=== PATIENT | male | born 1970 | race Caucasian/White ===

== ENCOUNTER 2016-10-23 20:27 | Inpatient (IN) | payer MEDICAID, OTHER, SELFPAY ==
[~2016-10-23] VITALS: Ht 177.8 cm; Wt 85.5 kg
[2016-10-23] MEDS ORDERED: ALBUTEROL/IPRATROPIUM 2.5MG/0.5MG, 3 ML ONE (20:37)
[2016-10-23] MEDS ORDERED: CEFTRIAXONE PMX 1GM/50ML 50 ML ONE (20:58)
[2016-10-23] MEDS ORDERED: methylPREDNISolone SOD SUCC 125 MG/2 ML ONE (20:58)
[2016-10-23] MEDS ORDERED: KETOROLAC 30 MG/1 ML ONE (20:58)
[2016-10-23] MEDS ORDERED: methylPREDNISolone SOD SUCC 125 MG/2 ML IVP ONE (21:00)
[2016-10-23] MEDS ORDERED: SODIUM CHLORIDE FLUSH 10ML SYR IVF ONE (21:00)
[2016-10-23] MEDS ORDERED: SODIUM CHLORIDE 0.9% 1,000ML IVBOLUS ONE ×2 (21:00→22:00)
[2016-10-23] MEDS ORDERED: AZITHROMYCIN 500 MG in SODIUM CHLORIDE 0.9% 250 ML IV ONE (21:00)
[2016-10-23] MEDS ORDERED: KETOROLAC 30 MG/1 ML IVPush ONE (21:00)
[2016-10-23] MEDS ORDERED: CEFTRIAXONE 1,000 MG in SODIUM CHLORIDE 0.9% 50 ML IV ONE (21:00)
[2016-10-23] MEDS ORDERED: ALBUTEROL/IPRATROPIUM 2.5MG/0.5MG, 3 ML NPPB ONE (21:00)
[2016-10-23 21:25] LABS: BLOOD UREA NITROGEN 13 mg/dL (7-18)
[2016-10-23 21:31] LABS: IS PT STATUS REG ER OR PRE ER? YES
[2016-10-23] MEDS ORDERED: FLUT1BLS INH (21:50)
[2016-10-23] MEDS ORDERED: GABA300C10 PO (21:50)
[2016-10-23] MEDS ORDERED: IPRA12.9 INH (21:50)
[2016-10-23] MEDS ORDERED: LURA40TA PO (21:50)
[2016-10-23] MEDS ORDERED: ALBU18HF INH (21:50)
[2016-10-23] MEDS ORDERED: ATOR10TA9 PO (21:50)
[2016-10-23] MEDS ORDERED: ALBUTEROL 0.5%, 20ML NPPBCONT ONE (22:00)
[2016-10-23 23:50] VITALS: BP 94/66
[2016-10-24] MEDS ORDERED: IPRATROPIUM 0.5 MG/2.5 ML INHA HHN PRN
[2016-10-24] MEDS ORDERED: ALBUTEROL SULFATE 2.5 MG/3 ML HHN SCH
[2016-10-24] MEDS ORDERED: morphine SULFATE 10 MG/ML, 1ML IVPush PRN
[2016-10-24] MEDS: SODIUM CHLORIDE 0.9% 1,000 ML IV SCH ×4 (00:12→21:08)
[2016-10-24] MEDS: ENOXAPARIN 40 MG/0.4 ML SQ SCH (00:12)
[2016-10-24] MEDS ORDERED: ALBUTEROL/IPRATROPIUM 2.5MG/0.5MG, 3 ML ONE (01:14)
[2016-10-24] MEDS ORDERED: ALBUTEROL/IPRATROPIUM 2.5MG/0.5MG, 3 ML NPPB PRN (01:30)
[2016-10-24 01:55] VITALS: BP 114/61
[2016-10-24] MEDS: methylPREDNISolone SOD SUCC 125 MG/2 ML IVPush SCH ×4 (03:02→21:08)
[2016-10-24 05:05] LABS: BLOOD UREA NITROGEN 17 mg/dL (7-18)
[2016-10-24 06:40] VITALS: BP 117/79
[2016-10-24] MEDS: ALBUTEROL/IPRATROPIUM 2.5MG/0.5MG, 3 ML NPPB SCH ×5 (07:05→22:40)
[2016-10-24] MEDS: LURASIDONE 20 MG TABLET HOMEMEDPO SCH (09:00)
[2016-10-24] MEDS ORDERED: CEFTRIAXONE 1,000 MG in SODIUM CHLORIDE 0.9% 50 ML IV SCH (09:00)
[2016-10-24] MEDS: FLUTICASONE/VILANTEROL 200-25MCG/INH INH SCH (09:47)
[2016-10-24] MEDS: GABAPENTIN 300 MG CAPSULE PO SCH ×3 (09:47→21:08)
[2016-10-24] MEDS ORDERED: NICOTINE 14MG/24 HR PATCH.TD24 TD ONE (11:30)
[2016-10-24 12:30] VITALS: BP 113/75
[2016-10-24] MEDS: GUAIFENESIN 200 MG TABLET PO SCH ×3 (14:30→21:09)
[2016-10-24] MEDS ORDERED: GUAIFENESIN 200 MG TABLET PO SCH (16:00)
[2016-10-24 18:38] VITALS: BP 123/76
[2016-10-24] MEDS ORDERED: AZITHROMYCIN 250 MG TABLET PO SCH (21:00)
[2016-10-24] MEDS: AZITHROMYCIN 500 MG in SODIUM CHLORIDE 0.9% 250 ML IV SCH (21:08)
[2016-10-24] MEDS: ATORVASTATIN 10 MG TABLET PO SCH (21:09)
[2016-10-25] MEDS: ENOXAPARIN 40 MG/0.4 ML SQ SCH (00:04)
[2016-10-25 01:31] VITALS: BP 112/70
[2016-10-25 02:23] VITALS: BP 106/64
[2016-10-25] MEDS: SODIUM CHLORIDE 0.9% 1,000 ML IV SCH ×2 (04:12→12:39)
[2016-10-25] MEDS: GUAIFENESIN 200 MG TABLET PO SCH ×4 (05:12→20:52)
[2016-10-25] MEDS: ALBUTEROL/IPRATROPIUM 2.5MG/0.5MG, 3 ML NPPB SCH ×5 (06:52→22:32)
[2016-10-25 07:08] VITALS: BP 117/70
[2016-10-25] MEDS: FLUTICASONE/VILANTEROL 200-25MCG/INH INH SCH (08:24)
[2016-10-25] MEDS: CEFTRIAXONE PMX 1GM/50ML 50 ML IV SCH (08:24)
[2016-10-25] MEDS: GABAPENTIN 300 MG CAPSULE PO SCH ×3 (08:25→20:52)
[2016-10-25] MEDS: methylPREDNISolone SOD SUCC 125 MG/2 ML IVPush SCH ×2 (08:25→17:05)
[2016-10-25] MEDS: LURASIDONE 20 MG TABLET HOMEMEDPO SCH (08:32)
[2016-10-25] MEDS ORDERED: CEFTRIAXONE 1,000 MG in SODIUM CHLORIDE 0.9% 50 ML IV SCH (09:00)
[2016-10-25 13:28] VITALS: BP 115/70
[2016-10-25] MEDS: NICOTINE 14MG/24 HR PATCH.TD24 TD SCH (14:23)
[2016-10-25 19:43] VITALS: BP 142/89
[2016-10-25] MEDS: AZITHROMYCIN 500 MG in SODIUM CHLORIDE 0.9% 250 ML IV SCH (20:52)
[2016-10-25] MEDS: ATORVASTATIN 10 MG TABLET PO SCH (20:52)
[2016-10-25] MEDS: methylPREDNISolone SOD SUCC 40 MG/ML IVPush SCH (21:04)
[2016-10-26 01:49] VITALS: BP 115/73
[2016-10-26] MEDS: ALBUTEROL/IPRATROPIUM 2.5MG/0.5MG, 3 ML NPPB SCH ×6 (02:22→23:12)
[2016-10-26] MEDS: GUAIFENESIN 200 MG TABLET PO SCH ×4 (05:56→20:26)
[2016-10-26] MEDS: ENOXAPARIN 40 MG/0.4 ML SQ SCH (05:57)
[2016-10-26 07:37] VITALS: BP 131/86
[2016-10-26] MEDS: GABAPENTIN 300 MG CAPSULE PO SCH ×3 (08:11→20:25)
[2016-10-26] MEDS: methylPREDNISolone SOD SUCC 40 MG/ML IVPush SCH ×2 (08:11→15:24)
[2016-10-26] MEDS: CEFTRIAXONE PMX 1GM/50ML 50 ML IV SCH (08:11)
[2016-10-26] MEDS: FLUTICASONE/VILANTEROL 200-25MCG/INH INH SCH (08:36)
[2016-10-26] MEDS: LURASIDONE 20 MG TABLET HOMEMEDPO SCH (09:00)
[2016-10-26] MEDS: NICOTINE 14MG/24 HR PATCH.TD24 TD SCH (13:30)
[2016-10-26 15:37] VITALS: BP 126/73
[2016-10-26 19:13] VITALS: BP 130/78
[2016-10-26] MEDS: AZITHROMYCIN 500 MG in SODIUM CHLORIDE 0.9% 250 ML IV SCH (20:24)
[2016-10-26] MEDS: ATORVASTATIN 10 MG TABLET PO SCH (20:25)
[2016-10-27 02:17] VITALS: BP 125/78
[2016-10-27] MEDS: ALBUTEROL/IPRATROPIUM 2.5MG/0.5MG, 3 ML NPPB SCH ×6 (03:20→22:03)
[2016-10-27] MEDS: ENOXAPARIN 40 MG/0.4 ML SQ SCH (05:26)
[2016-10-27] MEDS: GUAIFENESIN 200 MG TABLET PO SCH ×4 (05:26→20:28)
[2016-10-27 07:11] VITALS: BP 146/93
[2016-10-27] MEDS: CEFTRIAXONE PMX 1GM/50ML 50 ML IV SCH (08:33)
[2016-10-27] MEDS: FLUTICASONE/VILANTEROL 200-25MCG/INH INH SCH (08:33)
[2016-10-27] MEDS: LURASIDONE 20 MG TABLET HOMEMEDPO SCH (08:33)
[2016-10-27] MEDS: GABAPENTIN 300 MG CAPSULE PO SCH ×3 (08:33→20:28)
[2016-10-27 14:51] VITALS: BP 119/78
[2016-10-27] MEDS: NICOTINE 14MG/24 HR PATCH.TD24 TD SCH (15:00)
[2016-10-27 18:47] VITALS: BP 46/93
[2016-10-27] MEDS: ATORVASTATIN 10 MG TABLET PO SCH (20:28)
[2016-10-27] MEDS: AZITHROMYCIN 500 MG in SODIUM CHLORIDE 0.9% 250 ML IV SCH (20:41)
[2016-10-28 01:24] VITALS: BP 126/80
[2016-10-28] MEDS: ALBUTEROL/IPRATROPIUM 2.5MG/0.5MG, 3 ML NPPB SCH ×3 (01:45→09:31)
[2016-10-28] MEDS ORDERED: MORPHINE SULFATE 4 MG/ML, 1ML ONE (05:19)
[2016-10-28] MEDS: ENOXAPARIN 40 MG/0.4 ML SQ SCH (05:27)
[2016-10-28] MEDS: GUAIFENESIN 200 MG TABLET PO SCH ×2 (05:27→12:02)
[2016-10-28] MEDS ORDERED: LEVO500T33 PO (06:59)
[2016-10-28] MEDS ORDERED: METH4TAB2 PO (06:59)
[2016-10-28] MEDS ORDERED: FLUT1BLS INH (06:59)
[2016-10-28 07:16] VITALS: BP 141/97
[2016-10-28] MEDS: LURASIDONE 20 MG TABLET HOMEMEDPO SCH (09:00)
[2016-10-28] MEDS: FLUTICASONE/VILANTEROL 200-25MCG/INH INH SCH (09:55)
[2016-10-28] MEDS: GABAPENTIN 300 MG CAPSULE PO SCH (09:55)
[2016-10-28] MEDS: CEFTRIAXONE PMX 1GM/50ML 50 ML IV SCH (09:56)
[2016-10-28 12:07] VITALS: BP 119/81
== END 2016-10-28 14:48 | disposition home or self-care (01) | DRG 871 ==
LOC: ED 21:42 → EDIP 21:55 → 5SO 23:45 → 4WST 10-25 02:00
PROVIDERS: ADMIT Internal Medicine
DX: A41.9 Sepsis, unspecified organism (principal); J96.01 Acute respiratory failure with hypoxia; J18.9 Pneumonia, unspecified organism; E44.1 Mild protein-calorie malnutrition; F33.9 Major depressive disorder, recurrent, unspecified; J44.0 Chronic obstructive pulmonary disease with (acute) lower respiratory infection; J44.1 Chronic obstructive pulmonary disease with (acute) exacerbation; G25.0 Essential tremor; I10 Essential (primary) hypertension; I27.2 Other secondary pulmonary hypertension; R65.20 Severe sepsis without septic shock; Z80.0 Family history of malignant neoplasm of digestive organs; Z82.5 Family history of asthma and other chronic lower respiratory diseases; Z87.891 Personal history of nicotine dependence; Z99.81 Dependence on supplemental oxygen; D64.9 Anemia, unspecified; Z68.27 Body mass index [BMI] 27.0-27.9, adult
CPT/HCPCS: 36415; 71010; 80048; 82040; 83605; 83880; 84484; 85025; 87040; 87070; 87205; 93005; 94640; 96365; 96366; 96367; 96375; J0456; J0696; J1650; J1885; J7620; J2270; J2920; J2930; J7030; J7050; J7512

== ENCOUNTER 2016-11-05 08:07 | Inpatient (IN) | payer MEDICAID ==
[~2016-11-05] VITALS: Ht 177.8 cm; Wt 87.2 kg
[~2016-11-05 08:07] MED LIST: ALBU18HF INH; ATOR10TA9 PO; FLUT1BLS INH; GABA300C10 PO; IPRA12.9 INH; LEVO500T33 PO; LURA40TA PO; METH4TAB2 PO
[2016-11-05] MEDS ORDERED: SODIUM CHLORIDE 0.9% 1,000 ML IV ONE (08:23)
[2016-11-05] MEDS ORDERED: SODIUM CHLORIDE 0.9% 1,000ML IVBOLUS ONE (08:30)
[2016-11-05] MEDS ORDERED: ALBUTEROL/IPRATROPIUM 2.5MG/0.5MG, 3 ML NPPB ONE (08:30)
[2016-11-05] MEDS ORDERED: ALBUTEROL/IPRATROPIUM 2.5MG/0.5MG, 3 ML ONE (08:34)
[2016-11-05 10:02] LABS: BLOOD UREA NITROGEN 13 mg/dL (7-18)
[2016-11-05] MEDS ORDERED: OMNIPAQUE 350 MG/ML, 100ML BOTTLE ONE (11:16)
[2016-11-05] MEDS ORDERED: hydrALAzine 20 MG/ML, 1ML IVPush PRN (12:30)
[2016-11-05] MEDS ORDERED: ONDANSETRON ODT 4 MG PO PRN (12:30)
[2016-11-05] MEDS ORDERED: POLYETHYLENE GLYCOL 17 GM PACKET PO PRN (12:30)
[2016-11-05] MEDS ORDERED: morphine SULFATE 10 MG/ML, 1ML IVPush PRN (12:30)
[2016-11-05] MEDS ORDERED: DOCUSATE 100 MG CAPSULE PO PRN (12:30)
[2016-11-05] MEDS ORDERED: ACETAMINOPHEN 325 MG TABLET PO PRN (12:30)
[2016-11-05] MEDS ORDERED: BISACODYL 10 MG SUPP PR PRN (12:30)
[2016-11-05] MEDS ORDERED: IPRATROPIUM 0.5 MG/2.5 ML INHA NPPB PRN (12:30)
[2016-11-05] MEDS ORDERED: ONDANSETRON 2MG/ML, 2ML IVPush PRN (12:30)
[2016-11-05 13:56] VITALS: BP 133/84
[2016-11-05] MEDS: ALBUTEROL SULFATE 2.5 MG/3 ML NPPB SCH ×2 (15:11→19:07)
[2016-11-05] MEDS: NICOTINE 14MG/24 HR PATCH.TD24 TD SCH (17:57)
[2016-11-05] MEDS: GUAIFENESIN ER 600 MG TABLET PO SCH ×2 (17:58→20:44)
[2016-11-05] MEDS: methylPREDNISolone SOD SUCC 125 MG/2 ML IVPush SCH (17:58)
[2016-11-05] MEDS: GABAPENTIN 300 MG CAPSULE PO SCH ×2 (17:59→20:43)
[2016-11-05] MEDS: ENOXAPARIN 40 MG/0.4 ML SQ SCH (17:59)
[2016-11-05] MEDS: FAMOTIDINE 20 MG TABLET PO SCH (20:43)
[2016-11-05] MEDS: ATORVASTATIN 10 MG TABLET PO SCH (20:44)
[2016-11-05 20:56] VITALS: BP 152/91
[2016-11-06 01:54] VITALS: BP 124/80
[2016-11-06] MEDS: methylPREDNISolone SOD SUCC 125 MG/2 ML IVPush SCH ×3 (01:58→18:40)
[2016-11-06 05:02] LABS: BLOOD UREA NITROGEN 14 mg/dL (7-18)
[2016-11-06 05:07] LABS: ASPARTATE AMINO TRANSFERASE 34 U/L (15-37)
[2016-11-06 07:11] VITALS: BP 132/82
[2016-11-06] MEDS: ALBUTEROL SULFATE 2.5 MG/3 ML NPPB SCH ×4 (07:29→19:48)
[2016-11-06] MEDS: GUAIFENESIN ER 600 MG TABLET PO SCH ×2 (09:20→21:02)
[2016-11-06] MEDS: FAMOTIDINE 20 MG TABLET PO SCH ×2 (09:20→21:02)
[2016-11-06] MEDS: GABAPENTIN 300 MG CAPSULE PO SCH ×3 (09:20→21:02)
[2016-11-06] MEDS: LURASIDONE 20 MG TABLET PO SCH (09:20)
[2016-11-06] MEDS: FLUTICASONE/VILANTEROL 200-25MCG/INH INH SCH (10:44)
[2016-11-06 13:24] VITALS: BP 118/73
[2016-11-06] MEDS: ENOXAPARIN 40 MG/0.4 ML SQ SCH (18:40)
[2016-11-06] MEDS: NICOTINE 14MG/24 HR PATCH.TD24 TD SCH (18:40)
[2016-11-06] MEDS: ATORVASTATIN 10 MG TABLET PO SCH (21:02)
[2016-11-06 21:22] VITALS: BP 136/88
[2016-11-07] MEDS: methylPREDNISolone SOD SUCC 125 MG/2 ML IVPush SCH ×3 (01:57→22:13)
[2016-11-07 02:27] VITALS: BP 112/68
[2016-11-07 04:44] LABS: BLOOD UREA NITROGEN 13 mg/dL (7-18)
[2016-11-07] MEDS: ALBUTEROL SULFATE 2.5 MG/3 ML NPPB SCH ×3 (06:42→15:06)
[2016-11-07] MEDS: LURASIDONE 20 MG TABLET PO SCH (07:38)
[2016-11-07] MEDS: GUAIFENESIN ER 600 MG TABLET PO SCH ×2 (07:38→22:14)
[2016-11-07] MEDS: FAMOTIDINE 20 MG TABLET PO SCH ×2 (07:38→22:13)
[2016-11-07] MEDS: FLUTICASONE/VILANTEROL 200-25MCG/INH INH SCH (07:38)
[2016-11-07] MEDS: GABAPENTIN 300 MG CAPSULE PO SCH ×3 (07:41→22:13)
[2016-11-07 08:04] VITALS: BP 102/63
[2016-11-07 15:31] VITALS: BP 109/65
[2016-11-07] MEDS: ENOXAPARIN 40 MG/0.4 ML SQ SCH (16:56)
[2016-11-07] MEDS: NICOTINE 14MG/24 HR PATCH.TD24 TD SCH (16:56)
[2016-11-07 19:22] VITALS: BP 123/76
[2016-11-07] MEDS: ATORVASTATIN 10 MG TABLET PO SCH (22:14)
[2016-11-08 01:28] VITALS: BP 111/72
[2016-11-08] MEDS: methylPREDNISolone SOD SUCC 125 MG/2 ML IVPush SCH (05:25)
[2016-11-08] MEDS: ALBUTEROL SULFATE 2.5 MG/3 ML NPPB SCH ×3 (06:45→14:55)
[2016-11-08 07:02] VITALS: BP 114/66
[2016-11-08] MEDS: GABAPENTIN 300 MG CAPSULE PO SCH ×2 (08:31→15:58)
[2016-11-08] MEDS: FLUTICASONE/VILANTEROL 200-25MCG/INH INH SCH (08:31)
[2016-11-08] MEDS: LURASIDONE 20 MG TABLET PO SCH (08:31)
[2016-11-08] MEDS: GUAIFENESIN ER 600 MG TABLET PO SCH (08:32)
[2016-11-08] MEDS: FAMOTIDINE 20 MG TABLET PO SCH (08:32)
[2016-11-08 13:42] VITALS: BP 121/70
[2016-11-08] MEDS: ENOXAPARIN 40 MG/0.4 ML SQ SCH (15:58)
[2016-11-08] MEDS: NICOTINE 14MG/24 HR PATCH.TD24 TD SCH (15:59)
[2016-11-08] MEDS ORDERED: PRED20TA PO (16:01)
[2016-11-08] MEDS ORDERED: GUAI600T22 PO (16:01)
== END 2016-11-08 18:07 | disposition home or self-care (01) | DRG 189 ==
LOC: ED 08:45 → EDIP 11:44 → 3NW 13:28
PROVIDERS: ADMIT Internal Medicine; ATTEND Internal Medicine
DX: J96.21 Acute and chronic respiratory failure with hypoxia (principal); J44.1 Chronic obstructive pulmonary disease with (acute) exacerbation; E87.2 Acidosis; J98.11 Atelectasis; Z99.11 Dependence on respirator [ventilator] status; E44.0 Moderate protein-calorie malnutrition; Z66 Do not resuscitate; L40.9 Psoriasis, unspecified; I10 Essential (primary) hypertension; F41.8 Other specified anxiety disorders; F31.9 Bipolar disorder, unspecified; F17.200 Nicotine dependence, unspecified, uncomplicated; E78.5 Hyperlipidemia, unspecified; Z59.0 Homelessness; Z88.0 Allergy status to penicillin; Z68.27 Body mass index [BMI] 27.0-27.9, adult; E78.00 Pure hypercholesterolemia, unspecified
CPT/HCPCS: 36415; 71020; 71275; 80048; 80053; 82040; 82310; 83605; 83735; 84132; 84145; 85025; 85379; 87040; 87070; 87205; 93005; 93306; 94640; 96360; 96361; J1650; J7613; J7620; Q9967; J2930; J7030

== ENCOUNTER 2017-05-17 22:30 | Inpatient (IN) | payer MEDICAID ==
[~2017-05-17] VITALS: Ht 177.8 cm; Wt 81.0 kg
[~2017-05-17 22:30] MED LIST changes: +GUAI600T31 PO; -LEVO500T33 PO; +LEVO500T47 PO; +PRED20TA PO
[2017-05-17] MEDS ORDERED: LOSA25TA5 PO (22:43)
[2017-05-17] MEDS ORDERED: PRED10TA PO (22:43)
[2017-05-17] MEDS ORDERED: BUSP15TA BC (22:43)
[2017-05-17] MEDS ORDERED: UMEC1DIS INH (22:43)
[2017-05-17] MEDS ORDERED: TAMS0.4C2 PO (22:43)
[2017-05-17] MEDS ORDERED: TIOT4MIS3 INH (22:43)
[2017-05-17] MEDS ORDERED: SODIUM CHLORIDE 0.9% 1,000ML IVBOLUS ONE (23:00)
[2017-05-17 23:31] LABS: BASOPHILS # (AUTO) 0.03 x10^3/uL (0-0.1); BASOPHILS % (AUTO) 0 % (0-1); EOSINOPHILS # (AUTO) 0.05 x10^3/uL (0-0.4); EOSINOPHILS % (AUTO) 0 % (1-7); LYMPHOCYTES # (AUTO) 2.05 x10^3/uL (1-3.4); LYMPHOCYTES % (AUTO) 20 % (22-44); MD NO; MEAN CORPUSCULAR HEMOGLOBIN 30.2 pg (27.5-34.5); MEAN CORPUSCULAR HGB CONC 33.2 g/dL (33.2-36.2); MEAN CORPUSCULAR VOLUME 90.9 fL (81-97); MEAN PLATELET VOLUME 7.7 fL (7.4-10.4); MONOCYTES # (AUTO) 1.31 x10^3/uL (0.2-0.8); MONOCYTES % (AUTO) 13 % (2-9); NEUTROPHILS # (AUTO) 6.96 x10^3/uL (1.8-6.8); NEUTROPHILS % (AUTO) 67 % (42-75); PLATELET COUNT 360 x10^3/uL (130-400); RED BLOOD COUNT 5.09 x10^6/uL (4.38-5.82); RED CELL DISTRIBUTION WIDTH 12.8 % (9.4-14.8)
[2017-05-17 23:38] LABS: RAPID INFLUENZA A Negative (Negative); RAPID INFLUENZA B Negative (Negative)
[2017-05-17 23:41] LABS: ALBUMIN 3.2 g/dL (3.4-5.0); ANION GAP 9 mmol/L (5-15); CALCIUM 9.1 mg/dL (8.5-10.1); CHLORIDE 104 mmol/L (98-107); CREATININE 0.95 mg/dL (0.7-1.3)
[2017-05-17 23:45] LABS: TROPONIN I < 0.015 ng/mL (0.000-0.045)
[2017-05-18] MEDS ORDERED: SODIUM CHLORIDE 0.9% 1,000ML IVBOLUS ONE
[2017-05-18] MEDS ORDERED: OMNIPAQUE 350 MG/ML, 100ML BOTTLE ONE (00:13)
[2017-05-18] MEDS ORDERED: SODIUM CHLORIDE 0.9% 1,000 ML IV ONE (01:14)
[2017-05-18] MEDS ORDERED: CEFTRIAXONE PMX 1GM/50ML 50 ML ONE (01:26)
[2017-05-18] MEDS ORDERED: AZITHROMYCIN 500 MG in SODIUM CHLORIDE 0.9% 250 ML IV ONE (01:30)
[2017-05-18] MEDS ORDERED: ONDANSETRON 2MG/ML, 2ML IVPush PRN (01:30)
[2017-05-18] MEDS ORDERED: CEFTRIAXONE PMX 1GM/50ML 50 ML IVPB ONE (01:30)
[2017-05-18] MEDS: ALBUTEROL/IPRATROPIUM 2.5MG/0.5MG, 3 ML NPPB SCH ×6 (01:51→22:17)
[2017-05-18] MEDS ORDERED: ALBUTEROL/IPRATROPIUM 2.5MG/0.5MG, 3 ML ONE ×2 (05:10→10:20)
[2017-05-18] MEDS: SODIUM CHLORIDE 0.9% 1,000 ML IV SCH ×2 (09:53→17:28)
[2017-05-18] MEDS ORDERED: ONDANSETRON 2MG/ML, 2ML IV PRN (10:00)
[2017-05-18] MEDS ORDERED: ENOXAPARIN 40 MG/0.4 ML SQ SCH (10:00)
[2017-05-18] MEDS ORDERED: AZITHROMYCIN 500 MG in SODIUM CHLORIDE 0.9% 250 ML IV SCH (10:00)
[2017-05-18] MEDS ORDERED: PHARMACY MAY ADJ FOR RENAL FX MC PRN (10:00)
[2017-05-18] MEDS ORDERED: ACETAMINOPHEN 325 MG TABLET PO PRN (10:00)
[2017-05-18] MEDS ORDERED: CEFTRIAXONE PMX 1GM/50ML 50 ML IV SCH (10:00)
[2017-05-18] MEDS ORDERED: ENOXAPARIN 40 MG/0.4 ML ONE (11:03)
[2017-05-18] MEDS: GUAIFENESIN 200 MG TABLET PO SCH ×3 (11:41→23:51)
[2017-05-18] MEDS: DOXYCYCLINE 100 MG in DEXTROSE 5% 250 ML IV SCH ×2 (11:59→23:51)
[2017-05-18] MEDS: POTASSIUM CHLORIDE 20 MEQ TAB.ER.PRT PO SCH (17:25)
[2017-05-18] MEDS: GABAPENTIN 300 MG CAPSULE PO SCH ×2 (17:25→21:01)
[2017-05-18 18:23] VITALS: BP 107/68
[2017-05-18 20:32] VITALS: BP 110/65
[2017-05-18] MEDS ORDERED: DOCUSATE 100 MG CAPSULE PO PRN (21:00)
[2017-05-18] MEDS ORDERED: TEMAZEPAM 15 MG CAPSULE PO PRN (21:00)
[2017-05-18] MEDS: BUSPIRONE 10 MG TABLET PO SCH (21:01)
[2017-05-18] MEDS: ATORVASTATIN 10 MG TABLET PO SCH (21:01)
[2017-05-18] MEDS: NICOTINE 21 MG/24 HR PATCH.TD24 TD SCH (22:17)
[2017-05-19] MEDS ORDERED: CEFTRIAXONE PMX 1GM/50ML 50 ML IV SCH (01:30)
[2017-05-19 02:25] VITALS: BP 111/72
[2017-05-19 05:01] LABS: ANION GAP 8 mmol/L (5-15); CALCIUM 8.4 mg/dL (8.5-10.1); CHLORIDE 107 mmol/L (98-107)
[2017-05-19 05:03] LABS: CREATININE 0.91 mg/dL (0.7-1.3)
[2017-05-19 05:20] LABS: BASOPHILS % (AUTO) 0 % (0-1); EOSINOPHILS % (AUTO) 0 % (1-7); LYMPHOCYTES # (AUTO) 0.69 x10^3/uL (1-3.4); LYMPHOCYTES % (AUTO) 11 % (22-44); MD NO; MEAN CORPUSCULAR HEMOGLOBIN 29.9 pg (27.5-34.5); MEAN CORPUSCULAR HGB CONC 33.1 g/dL (33.2-36.2); MEAN CORPUSCULAR VOLUME 90.3 fL (81-97); MEAN PLATELET VOLUME 7.7 fL (7.4-10.4); MONOCYTES # (AUTO) 0.29 x10^3/uL (0.2-0.8); MONOCYTES % (AUTO) 5 % (2-9); NEUTROPHILS # (AUTO) 5.58 x10^3/uL (1.8-6.8); NEUTROPHILS % (AUTO) 85 % (42-75); PLATELET COUNT 287 x10^3/uL (130-400); RED BLOOD COUNT 4.13 x10^6/uL (4.38-5.82); RED CELL DISTRIBUTION WIDTH 12.9 % (9.4-14.8)
[2017-05-19] MEDS: SODIUM CHLORIDE 0.9% 1,000 ML IV SCH ×2 (05:53→15:42)
[2017-05-19] MEDS: GUAIFENESIN 200 MG TABLET PO SCH ×4 (06:42→21:50)
[2017-05-19 07:39] VITALS: BP 108/72
[2017-05-19] MEDS: ALBUTEROL/IPRATROPIUM 2.5MG/0.5MG, 3 ML NPPB SCH ×3 (08:00→19:27)
[2017-05-19] MEDS: LOSARTAN 25MG TABLET PO SCH (09:09)
[2017-05-19] MEDS: BUSPIRONE 10 MG TABLET PO SCH ×2 (09:09→21:50)
[2017-05-19] MEDS: GABAPENTIN 300 MG CAPSULE PO SCH ×3 (09:09→21:50)
[2017-05-19] MEDS: TAMSULOSIN 0.4 MG CAP.ER.24H PO SCH (09:09)
[2017-05-19] MEDS: POTASSIUM CHLORIDE 20 MEQ TAB.ER.PRT PO SCH (09:09)
[2017-05-19] MEDS: LURASIDONE HCL HOMEMEDPO SCH (09:10)
[2017-05-19] MEDS: DOXYCYCLINE 100 MG in DEXTROSE 5% 250 ML IV SCH (12:26)
[2017-05-19 13:02] VITALS: BP 121/66
[2017-05-19 20:06] VITALS: BP 120/69
[2017-05-19] MEDS: NICOTINE 21 MG/24 HR PATCH.TD24 TD SCH (21:49)
[2017-05-19] MEDS: ATORVASTATIN 10 MG TABLET PO SCH (21:50)
[2017-05-19] MEDS: ENOXAPARIN 40 MG/0.4 ML SQ SCH (21:50)
[2017-05-20] MEDS: DOXYCYCLINE 100 MG in DEXTROSE 5% 250 ML IV SCH ×3 (01:09→23:51)
[2017-05-20 03:10] VITALS: BP 126/81
[2017-05-20] MEDS: CEFTRIAXONE 1,000 MG in DEXTROSE 5% 50 ML IV SCH (03:28)
[2017-05-20] MEDS: SODIUM CHLORIDE 0.9% 1,000 ML IV SCH ×3 (05:36→19:52)
[2017-05-20] MEDS: GUAIFENESIN 200 MG TABLET PO SCH ×4 (05:39→21:07)
[2017-05-20 07:36] VITALS: BP 124/78
[2017-05-20] MEDS: ALBUTEROL/IPRATROPIUM 2.5MG/0.5MG, 3 ML NPPB SCH ×4 (08:30→19:30)
[2017-05-20] MEDS: BUSPIRONE 10 MG TABLET PO SCH ×2 (08:36→21:08)
[2017-05-20] MEDS: LOSARTAN 25MG TABLET PO SCH (08:37)
[2017-05-20] MEDS: GABAPENTIN 300 MG CAPSULE PO SCH ×3 (08:37→21:10)
[2017-05-20] MEDS: TAMSULOSIN 0.4 MG CAP.ER.24H PO SCH (08:37)
[2017-05-20] MEDS: LURASIDONE HCL HOMEMEDPO SCH (08:38)
[2017-05-20] MEDS ORDERED: methylPREDNISolone SOD SUCC 40 MG/ML IV ONE (12:30)
[2017-05-20 13:28] VITALS: BP 114/76
[2017-05-20 20:42] VITALS: BP 119/82
[2017-05-20] MEDS: ENOXAPARIN 40 MG/0.4 ML SQ SCH (21:08)
[2017-05-20] MEDS: ATORVASTATIN 10 MG TABLET PO SCH (21:08)
[2017-05-20] MEDS: NICOTINE 21 MG/24 HR PATCH.TD24 TD SCH (21:09)
[2017-05-21 01:28] VITALS: BP_SYST 102; BP_SYST 145; BP_DIAS 74; BP_DIAS 82
[2017-05-21] MEDS: CEFTRIAXONE 1,000 MG in DEXTROSE 5% 50 ML IV SCH (03:36)
[2017-05-21] MEDS: ALBUTEROL/IPRATROPIUM 2.5MG/0.5MG, 3 ML NPPB SCH ×4 (03:40→15:23)
[2017-05-21] MEDS: GUAIFENESIN 200 MG TABLET PO SCH ×3 (06:17→16:41)
[2017-05-21 07:03] VITALS: BP 112/73
[2017-05-21] MEDS: TAMSULOSIN 0.4 MG CAP.ER.24H PO SCH (09:00)
[2017-05-21] MEDS: LURASIDONE HCL HOMEMEDPO SCH (09:00)
[2017-05-21] MEDS: SODIUM CHLORIDE 0.9% 1,000 ML IV SCH (09:17)
[2017-05-21] MEDS: LOSARTAN 25MG TABLET PO SCH (09:19)
[2017-05-21] MEDS: GABAPENTIN 300 MG CAPSULE PO SCH ×2 (09:20→16:41)
[2017-05-21] MEDS: BUSPIRONE 10 MG TABLET PO SCH (09:20)
[2017-05-21] MEDS: DOXYCYCLINE 100 MG in DEXTROSE 5% 250 ML IV SCH (12:50)
[2017-05-21] MEDS ORDERED: NICO-487 TD (13:52)
[2017-05-21] MEDS ORDERED: PRED20TA PO (13:52)
[2017-05-21] MEDS ORDERED: GUAI200T3 PO (13:52)
[2017-05-21] MEDS ORDERED: DOXY100T PO (13:53)
[2017-05-21] MEDS ORDERED: CEFD300C37 PO (13:53)
== END 2017-05-21 16:50 | disposition home or self-care (01) | DRG 193 ==
LOC: ED 05-18 00:01 → EDIP 05-18 01:14 → 3NE 05-18 12:51
PROVIDERS: ADMIT Surgery; ATTEND Surgery
DX: J18.9 Pneumonia, unspecified organism (principal); J96.21 Acute and chronic respiratory failure with hypoxia; Z99.81 Dependence on supplemental oxygen; E44.1 Mild protein-calorie malnutrition; J44.1 Chronic obstructive pulmonary disease with (acute) exacerbation; J98.11 Atelectasis; G62.9 Polyneuropathy, unspecified; D64.9 Anemia, unspecified; D72.829 Elevated white blood cell count, unspecified; Z68.25 Body mass index [BMI] 25.0-25.9, adult; E78.00 Pure hypercholesterolemia, unspecified; E78.5 Hyperlipidemia, unspecified; E87.6 Hypokalemia; F17.210 Nicotine dependence, cigarettes, uncomplicated; F31.9 Bipolar disorder, unspecified; F41.9 Anxiety disorder, unspecified; G47.00 Insomnia, unspecified; I10 Essential (primary) hypertension; N40.0 Benign prostatic hyperplasia without lower urinary tract symptoms; Z82.49 Family history of ischemic heart disease and other diseases of the circulatory system; Z90.49 Acquired absence of other specified parts of digestive tract
CPT/HCPCS: 36415; 71045; 71275; 80048; 82040; 83605; 83735; 84100; 84145; 84484; 85025; 87040; 87400; 93005; 94640; 96361; 96365; 96367; 96375; J0456; J0696; J1650; J7060; J7620; Q9967; J2920; J7030; J7050; J7512

== ENCOUNTER 2017-07-17 01:34 | Inpatient (IN) | payer MEDICAID ==
[~2017-07-17] VITALS: Ht 177.8 cm; Wt 77.0 kg
[~2017-07-17 01:34] MED LIST changes: +BUSP15TA BC; +CEFD300C37 PO; +DOXY100T PO; +GUAI200T3 PO; +LOSA25TA5 PO; +NICO-487 TD; +PRED10TA PO; +TAMS0.4C2 PO; +TIOT4MIS3 INH; +UMEC1DIS INH
[2017-07-17] MEDS ORDERED: methylPREDNISolone SOD SUCC 125 MG/2 ML ONE (01:53)
[2017-07-17] MEDS ORDERED: SODIUM CHLORIDE FLUSH 10ML SYR IVF ONE (02:00)
[2017-07-17] MEDS ORDERED: SODIUM CHLORIDE 0.9% 1,000ML IVBOLUS ONE (02:00)
[2017-07-17] MEDS ORDERED: methylPREDNISolone SOD SUCC 125 MG/2 ML IVP ONE (02:00)
[2017-07-17 02:01] LABS: MEAN CORPUSCULAR HEMOGLOBIN 30.8 pg (27.5-34.5); MEAN CORPUSCULAR HGB CONC 33.3 g/dL (33.2-36.2); MEAN CORPUSCULAR VOLUME 92.5 fL (81-97); MEAN PLATELET VOLUME 8.2 fL (7.4-10.4); PLATELET COUNT 209 x10^3/uL (130-400); RED BLOOD COUNT 5.05 x10^6/uL (4.38-5.82); RED CELL DISTRIBUTION WIDTH 14.6 % (9.4-14.8)
[2017-07-17 02:16] LABS: ALANINE AMINOTRANSFERASE 25 U/L (12-78); ALBUMIN 3.7 g/dL (3.4-5.0); ANION GAP 9 mmol/L (5-15); CALCIUM 9.1 mg/dL (8.5-10.1); CHLORIDE 103 mmol/L (98-107)
[2017-07-17 02:21] LABS: ALKALINE PHOSPHATASE 88 U/L (45-117); BILIRUBIN,TOTAL 0.9 mg/dL (0.2-1.0); TOTAL PROTEIN 7.3 g/dL (6.4-8.2); TROPONIN I < 0.015 ng/mL (0.000-0.045)
[2017-07-17 02:23] LABS: MD YES
[2017-07-17 02:25] LABS: BAND#(MANUAL) 1.46 x10^3/uL; BANDS%(MANUAL) 8 % (0-7); LYMPH#(MANUAL) 2.01 x10^3/uL (1-3.4); LYMPHS% (MANUAL) 11 % (22-44); MONOS#(MANUAL) 0.37 x10^3/uL (0.3-2.7); MONOS% (MANUAL) 2 % (2-9); SEG#(MANUAL) 14.46 x10^3/uL (1.8-6.8); SEGS% (MANUAL) 79 % (42-75)
[2017-07-17 02:28] LABS: <PLATELET ESTIMATE> ADEQUATE; <PLT MORPHOLOGY> NORMAL PLT MORPH; <RBC MORPHOLOGY> NORMAL
[2017-07-17] MEDS ORDERED: CEFTRIAXONE PMX 1GM/50ML 50 ML IVPB ONE (02:30)
[2017-07-17] MEDS ORDERED: AZITHROMYCIN 500 MG in SODIUM CHLORIDE 0.9% 250 ML IVPB ONE (02:30)
[2017-07-17] MEDS ORDERED: CEFTRIAXONE PMX 1GM/50ML 50 ML ONE (02:35)
[2017-07-17] MEDS ORDERED: SODIUM CHLORIDE 0.9% 1,000 ML IV ONE (03:04)
[2017-07-17] MEDS ORDERED: SODIUM CHLORIDE FLUSH 10ML SYR IVF PRN (03:30)
[2017-07-17] MEDS ORDERED: CEFTRIAXONE PMX 2GM/50ML 50 ML IV SCH (03:30)
[2017-07-17] MEDS ORDERED: OXYcodone IR 5MG TABLET PO PRN (04:00)
[2017-07-17] MEDS ORDERED: morphine SULFATE 10 MG/ML, 1ML IVPush PRN (04:00)
[2017-07-17] MEDS ORDERED: FUROSEMIDE 20 MG/2 ML IV ONE (04:00)
[2017-07-17] MEDS ORDERED: ONDANSETRON 2MG/ML, 2ML IVPush PRN (04:00)
[2017-07-17] MEDS: HEPARIN 5,000 UNITS/ML, 1ML SQ SCH ×3 (04:00→21:47)
[2017-07-17] MEDS ORDERED: ACETAMINOPHEN 325 MG TABLET PO PRN (04:00)
[2017-07-17] MEDS ORDERED: hydrALAzine 20 MG/ML, 1ML IVPush PRN (04:00)
[2017-07-17] MEDS ORDERED: POLYETHYLENE GLYCOL 17 GM PACKET PO PRN (04:00)
[2017-07-17] MEDS ORDERED: BISACODYL 10 MG SUPP PR PRN (04:00)
[2017-07-17] MEDS ORDERED: ENALAPRILAT 1.25 MG/ML, 2ML IVPush PRN (04:00)
[2017-07-17] MEDS ORDERED: FUROSEMIDE 20 MG/2 ML ONE (04:01)
[2017-07-17] MEDS ORDERED: HEPARIN 5,000 UNITS/ML, 1ML ONE (04:01)
[2017-07-17 04:12] LABS: FREE T4 (FREE THYROXINE) 1.09 ng/dL (0.76-1.46); THYROID STIMULATING HORMONE 1.41 mIU/L (0.358-3.740)
[2017-07-17 04:16] LABS: HEMOGLOBIN A1C 5.2 % (4.2-6.3)
[2017-07-17] MEDS ORDERED: ALBUTEROL SULFATE 2.5 MG/3 ML ONE (04:28)
[2017-07-17] MEDS: methylPREDNISolone SOD SUCC 125 MG/2 ML IVPush SCH ×4 (04:32→21:47)
[2017-07-17] MEDS ORDERED: ALBUTEROL/IPRATROPIUM 2.5MG/0.5MG, 3 ML NPPB SCH (06:00)
[2017-07-17] MEDS: ALBUTEROL/IPRATROPIUM 2.5MG/0.5MG, 3 ML NPPB SCH ×6 (07:00→20:00)
[2017-07-17 08:30] VITALS: BP 103/71
[2017-07-17] MEDS: GABAPENTIN 300 MG CAPSULE PO SCH ×3 (08:58→21:47)
[2017-07-17] MEDS: SENNA/DOCUSATE TABLET PO SCH (08:58)
[2017-07-17] MEDS: LURASIDONE 20 MG TABLET PO SCH (08:58)
[2017-07-17] MEDS: DOXYCYCLINE 100MG TABLET PO SCH ×2 (08:59→21:47)
[2017-07-17] MEDS: TAMSULOSIN 0.4 MG CAP.ER.24H PO SCH (08:59)
[2017-07-17] MEDS ORDERED: BUSPIRONE HCL 15 MG BC SCH (09:00)
[2017-07-17] MEDS: FLUTICASONE/VILANTEROL 200-25MCG/INH INH SCH (10:45)
[2017-07-17 10:46] LABS: TROPONIN I < 0.015 ng/mL (0.000-0.045)
[2017-07-17] MEDS ORDERED: ALBUTEROL/IPRATROPIUM 2.5MG/0.5MG, 3 ML NPPB PRN (12:30)
[2017-07-17 13:28] LABS: TROPONIN I < 0.015 ng/mL (0.000-0.045)
[2017-07-17 13:33] LABS: MICROSCOPIC NOT IND
[2017-07-17 13:34] LABS: CULTURE INDICATED? NO
[2017-07-17 13:49] VITALS: BP 95/61
[2017-07-17] MEDS ORDERED: MAGNESIUM SULFATE PMX 2GM/50ML 50 ML IV ONE (16:30)
[2017-07-17] MEDS ORDERED: BUSPIRONE 5 MG TABLET PO SCH (16:47)
[2017-07-17] MEDS ORDERED: PHARMACOKINETIC MONITORING MC PRN (17:00)
[2017-07-17] MEDS ORDERED: VANCOMYCIN PER PHARMACY MC PRN (17:00)
[2017-07-17] MEDS ORDERED: PHARMACOKINETIC CONSULTATION MC ONE (17:00)
[2017-07-17] MEDS: VANCOMYCIN 1,700 MG in SODIUM CHLORIDE 0.9% 250 ML IV SCH (18:25)
[2017-07-17 21:45] VITALS: BP 94/61
[2017-07-17] MEDS: MAGNESIUM CHLORIDE 64 MG TABLET.DR PO SCH (21:47)
[2017-07-17] MEDS: BUSPIRONE 5 MG TABLET PO SCH (21:48)
[2017-07-18] MEDS: CEFTRIAXONE 2 GM in SODIUM CHLORIDE 0.9% 50 ML IV SCH (03:47)
[2017-07-18] MEDS: methylPREDNISolone SOD SUCC 125 MG/2 ML IVPush SCH ×3 (03:47→16:03)
[2017-07-18 03:48] VITALS: BP 90/60
[2017-07-18 05:30] LABS: CHLORIDE 109 mmol/L (98-107)
[2017-07-18] MEDS: VANCOMYCIN 1,700 MG in SODIUM CHLORIDE 0.9% 250 ML IV SCH (05:34)
[2017-07-18] MEDS: HEPARIN 5,000 UNITS/ML, 1ML SQ SCH ×3 (05:34→20:31)
[2017-07-18 05:39] LABS: BASOPHILS # (AUTO) 0.01 x10^3/uL (0-0.1); BASOPHILS % (AUTO) 0 % (0-1); EOSINOPHILS % (AUTO) 0 % (1-7); LYMPHOCYTES % (AUTO) 3 % (22-44); MD NO; MEAN CORPUSCULAR HEMOGLOBIN 30.9 pg (27.5-34.5); MEAN CORPUSCULAR HGB CONC 33.3 g/dL (33.2-36.2); MEAN CORPUSCULAR VOLUME 92.8 fL (81-97); MEAN PLATELET VOLUME 8.9 fL (7.4-10.4); MONOCYTES # (AUTO) 0.48 x10^3/uL (0.2-0.8); MONOCYTES % (AUTO) 3 % (2-9); NEUTROPHILS # (AUTO) 16.92 x10^3/uL (1.8-6.8); NEUTROPHILS % (AUTO) 95 % (42-75); PLATELET COUNT 201 x10^3/uL (130-400); RED BLOOD COUNT 4.15 x10^6/uL (4.38-5.82); RED CELL DISTRIBUTION WIDTH 14.9 % (9.4-14.8)
[2017-07-18 05:42] LABS: ALANINE AMINOTRANSFERASE 20 U/L (12-78); ALBUMIN 2.7 g/dL (3.4-5.0); ALKALINE PHOSPHATASE 72 U/L (45-117); ANION GAP 9 mmol/L (5-15); BILIRUBIN,TOTAL 0.4 mg/dL (0.2-1.0); CALCIUM 9.4 mg/dL (8.5-10.1); CHOL/HDL RATIO 3.7; CHOLESTEROL, TOTAL 143 mg/dL (140-239); CREATININE 0.92 mg/dL (0.7-1.3); HDL CHOL % 27 % (26-37); HDL CHOLESTEROL (DIRECT) 39 mg/dL (40-60); LDL CHOLESTEROL,CALCULATED 76 mg/dL (54-169); LDL/HDL RATIO 1.9 (0.5-3.0); TOTAL PROTEIN 6.5 g/dL (6.4-8.2); TRIGLYCERIDES 142 mg/dL (50-200); VLDL CHOLESTEROL 28 mg/dL (0-25)
[2017-07-18] MEDS: ALBUTEROL/IPRATROPIUM 2.5MG/0.5MG, 3 ML NPPB SCH ×4 (07:20→19:14)
[2017-07-18 07:35] VITALS: BP 98/61
[2017-07-18] MEDS: MAGNESIUM CHLORIDE 64 MG TABLET.DR PO SCH ×2 (08:13→20:30)
[2017-07-18] MEDS: BUSPIRONE 5 MG TABLET PO SCH ×2 (08:13→20:30)
[2017-07-18] MEDS: SENNA/DOCUSATE TABLET PO SCH (08:13)
[2017-07-18] MEDS: GABAPENTIN 300 MG CAPSULE PO SCH ×3 (08:13→20:31)
[2017-07-18] MEDS: FLUTICASONE/VILANTEROL 200-25MCG/INH INH SCH (08:13)
[2017-07-18] MEDS: LURASIDONE 20 MG TABLET PO SCH (08:14)
[2017-07-18] MEDS: TAMSULOSIN 0.4 MG CAP.ER.24H PO SCH (08:14)
[2017-07-18] MEDS: DOXYCYCLINE 100MG TABLET PO SCH ×2 (08:14→20:30)
[2017-07-18 14:39] VITALS: BP 91/61
[2017-07-18 20:00] VITALS: BP 105/55
[2017-07-18] MEDS: VANCOMYCIN 1,500 MG in SODIUM CHLORIDE 0.9% 250 ML IV SCH (20:30)
[2017-07-18] MEDS: GUAIFENESIN ER 600 MG TABLET PO SCH (20:31)
[2017-07-19 02:00] VITALS: BP 95/61
[2017-07-19] MEDS: CEFTRIAXONE 2 GM in SODIUM CHLORIDE 0.9% 50 ML IV SCH (03:13)
[2017-07-19] MEDS: HEPARIN 5,000 UNITS/ML, 1ML SQ SCH ×3 (03:14→20:50)
[2017-07-19] MEDS: ALBUTEROL/IPRATROPIUM 2.5MG/0.5MG, 3 ML NPPB SCH ×4 (07:15→19:10)
[2017-07-19] MEDS: FLUTICASONE/VILANTEROL 200-25MCG/INH INH SCH (08:12)
[2017-07-19] MEDS: LURASIDONE 20 MG TABLET PO SCH (08:12)
[2017-07-19] MEDS: MAGNESIUM CHLORIDE 64 MG TABLET.DR PO SCH ×2 (08:12→20:50)
[2017-07-19] MEDS: VANCOMYCIN 1,500 MG in SODIUM CHLORIDE 0.9% 250 ML IV SCH ×2 (08:12→20:51)
[2017-07-19] MEDS: GUAIFENESIN ER 600 MG TABLET PO SCH ×2 (08:13→20:51)
[2017-07-19] MEDS: GABAPENTIN 300 MG CAPSULE PO SCH ×3 (08:13→20:50)
[2017-07-19] MEDS: BUSPIRONE 5 MG TABLET PO SCH ×2 (08:13→20:50)
[2017-07-19] MEDS: TAMSULOSIN 0.4 MG CAP.ER.24H PO SCH (08:13)
[2017-07-19] MEDS: DOXYCYCLINE 100MG TABLET PO SCH ×2 (08:13→20:50)
[2017-07-19] MEDS: SENNA/DOCUSATE TABLET PO SCH (08:14)
[2017-07-19 08:55] VITALS: BP 100/66
[2017-07-19 13:42] VITALS: BP 102/54
[2017-07-19 20:00] VITALS: BP 102/63
[2017-07-20 01:51] VITALS: BP 120/69
[2017-07-20] MEDS: CEFTRIAXONE 2 GM in SODIUM CHLORIDE 0.9% 50 ML IV SCH (03:30)
[2017-07-20] MEDS: HEPARIN 5,000 UNITS/ML, 1ML SQ SCH ×3 (04:00→20:48)
[2017-07-20 07:10] VITALS: BP 106/80
[2017-07-20] MEDS: ALBUTEROL/IPRATROPIUM 2.5MG/0.5MG, 3 ML NPPB SCH ×4 (08:00→19:05)
[2017-07-20 08:08] LABS: MEAN CORPUSCULAR HEMOGLOBIN 30.2 pg (27.5-34.5); MEAN CORPUSCULAR HGB CONC 32.8 g/dL (33.2-36.2); MEAN PLATELET VOLUME 8.2 fL (7.4-10.4); PLATELET COUNT 188 x10^3/uL (130-400); RED BLOOD COUNT 3.83 x10^6/uL (4.38-5.82); RED CELL DISTRIBUTION WIDTH 14.9 % (9.4-14.8)
[2017-07-20 08:16] LABS: ANION GAP 4 mmol/L (5-15); CALCIUM 8.5 mg/dL (8.5-10.1); CHLORIDE 111 mmol/L (98-107); CREATININE 0.73 mg/dL (0.7-1.3)
[2017-07-20 08:25] LABS: BASOPHILS # (AUTO) 0.01 x10^3/uL (0-0.1); BASOPHILS % (AUTO) 0 % (0-1); EOSINOPHILS % (AUTO) 0 % (1-7); LYMPHOCYTES # (AUTO) 1.73 x10^3/uL (1-3.4); LYMPHOCYTES % (AUTO) 38 % (22-44); MD SCAN; MONOCYTES # (AUTO) 0.34 x10^3/uL (0.2-0.8); MONOCYTES % (AUTO) 8 % (2-9); NEUTROPHILS # (AUTO) 2.43 x10^3/uL (1.8-6.8); NEUTROPHILS % (AUTO) 54 % (42-75)
[2017-07-20] MEDS: SENNA/DOCUSATE TABLET PO SCH (09:13)
[2017-07-20] MEDS: BUSPIRONE 5 MG TABLET PO SCH ×2 (09:13→20:49)
[2017-07-20] MEDS: GABAPENTIN 300 MG CAPSULE PO SCH ×3 (09:13→20:48)
[2017-07-20] MEDS: GUAIFENESIN ER 600 MG TABLET PO SCH ×2 (09:13→20:48)
[2017-07-20] MEDS: DOXYCYCLINE 100MG TABLET PO SCH ×2 (09:13→20:48)
[2017-07-20] MEDS: MAGNESIUM CHLORIDE 64 MG TABLET.DR PO SCH ×2 (09:13→20:48)
[2017-07-20] MEDS: LURASIDONE 20 MG TABLET PO SCH (09:13)
[2017-07-20] MEDS: TAMSULOSIN 0.4 MG CAP.ER.24H PO SCH (09:13)
[2017-07-20] MEDS: VANCOMYCIN 1,500 MG in SODIUM CHLORIDE 0.9% 250 ML IV SCH ×2 (09:14→20:48)
[2017-07-20] MEDS: FLUTICASONE/VILANTEROL 200-25MCG/INH INH SCH (09:14)
[2017-07-20 12:22] VITALS: BP 96/63
[2017-07-20 18:45] VITALS: BP 127/89
[2017-07-21 01:00] VITALS: BP 109/74
[2017-07-21] MEDS: CEFTRIAXONE 2 GM in SODIUM CHLORIDE 0.9% 50 ML IV SCH (04:31)
[2017-07-21] MEDS: HEPARIN 5,000 UNITS/ML, 1ML SQ SCH ×2 (04:31→12:00)
[2017-07-21] MEDS: ALBUTEROL/IPRATROPIUM 2.5MG/0.5MG, 3 ML NPPB SCH (07:00)
[2017-07-21] MEDS ORDERED: GUAI600T31 PO (07:33)
[2017-07-21] MEDS ORDERED: CEFD300C37 PO (07:33)
[2017-07-21] MEDS ORDERED: DOXY100T PO (07:33)
[2017-07-21] MEDS ORDERED: IPRA3AMP NPPB ×2 (07:33→07:38)
[2017-07-21 08:15] VITALS: BP 116/74
[2017-07-21] MEDS: LURASIDONE 20 MG TABLET PO SCH (08:24)
[2017-07-21] MEDS: VANCOMYCIN 1,500 MG in SODIUM CHLORIDE 0.9% 250 ML IV SCH (08:24)
[2017-07-21] MEDS: GUAIFENESIN ER 600 MG TABLET PO SCH (08:24)
[2017-07-21] MEDS: SENNA/DOCUSATE TABLET PO SCH (08:24)
[2017-07-21] MEDS: DOXYCYCLINE 100MG TABLET PO SCH (08:24)
[2017-07-21] MEDS: FLUTICASONE/VILANTEROL 200-25MCG/INH INH SCH (08:25)
[2017-07-21] MEDS: TAMSULOSIN 0.4 MG CAP.ER.24H PO SCH ×2 (08:25→10:20)
[2017-07-21] MEDS: GABAPENTIN 300 MG CAPSULE PO SCH ×2 (08:25→16:48)
[2017-07-21] MEDS: BUSPIRONE 5 MG TABLET PO SCH (08:25)
[2017-07-21] MEDS: PNEUMOCOCCAL 23 VACCINE IM-VACC ONE ×2 (12:43→13:50)
[2017-07-21 14:10] VITALS: BP 123/81
== END 2017-07-21 18:02 | disposition home or self-care (01) | DRG 291 ==
LOC: ED 03:12 → EDIP 03:20 → 4WST 06:36
PROVIDERS: ADMIT Internal Medicine; ATTEND Internal Medicine
DX: I11.0 Hypertensive heart disease with heart failure (principal); J96.21 Acute and chronic respiratory failure with hypoxia; J15.9 Unspecified bacterial pneumonia; R78.81 Bacteremia; J44.0 Chronic obstructive pulmonary disease with (acute) lower respiratory infection; J44.1 Chronic obstructive pulmonary disease with (acute) exacerbation; I50.33 Acute on chronic diastolic (congestive) heart failure; E78.00 Pure hypercholesterolemia, unspecified; E78.5 Hyperlipidemia, unspecified; F31.9 Bipolar disorder, unspecified; N40.0 Benign prostatic hyperplasia without lower urinary tract symptoms; Z99.81 Dependence on supplemental oxygen; Z79.899 Other long term (current) drug therapy; Z87.891 Personal history of nicotine dependence; Z90.49 Acquired absence of other specified parts of digestive tract; Z88.0 Allergy status to penicillin
CPT/HCPCS: 36415; 71045; 80048; 80053; 80061; 80202; 81003; 82962; 83036; 83605; 83735; 84145; 84439; 84443; 84484; 85025; 87040; 87070; 87077; 87147; 87186; 87205; 90732; 94640; 96361; 96374; 96375; J0456; J0696; J1644; J3370; J7620; J1940; J2930; J3475; J7030; J7050